=== PATIENT | female | born 1930 | race Caucasian/White ===

== ENCOUNTER 2018-06-28 17:40 | Inpatient (IN) | payer MEDICARE, OTHER ==
[~2018-06-28] VITALS: Ht 152.4 cm; Wt 38.2 kg
[2018-06-28] MEDS ORDERED: THYR60TA PO (17:58)
[2018-06-28] MEDS ORDERED: SODIUM CHLORIDE 0.9% 1,000ML IVBOLUS ONE (18:30)
[2018-06-28] MEDS ORDERED: SODIUM CHLORIDE FLUSH 10ML SYR IVF ONE (18:30)
[2018-06-28 18:42] LABS: BASOPHILS % (AUTO) 0 % (0-1); EOSINOPHILS # (AUTO) 0.02 x10^3/uL (0-0.4); EOSINOPHILS % (AUTO) 0 % (1-7); LYMPHOCYTES # (AUTO) 1.99 x10^3/uL (1-3.4); LYMPHOCYTES % (AUTO) 28 % (22-44); MD NO; MEAN CORPUSCULAR HEMOGLOBIN 34.2 pg (27.0-34.8); MEAN CORPUSCULAR HGB CONC 33.8 g/dL (32.4-35.8); MEAN CORPUSCULAR VOLUME 101.1 fL (80-100); MEAN PLATELET VOLUME 9.3 fL (7.4-10.4); MONOCYTES # (AUTO) 0.57 x10^3/uL (0.2-0.8); MONOCYTES % (AUTO) 8 % (2-9); NEUTROPHILS # (AUTO) 4.51 x10^3/uL (1.8-6.8); NEUTROPHILS % (AUTO) 64 % (42-75); PLATELET COUNT 197 x10^3/uL (130-400); RED BLOOD COUNT 3.81 x10^6/uL (3.82-5.3); RED CELL DISTRIBUTION WIDTH 13.4 % (9.6-15.2)
[2018-06-28 18:54] LABS: ALANINE AMINOTRANSFERASE 26 U/L (12-78); ALBUMIN 3.6 g/dL (3.4-5.0); ANION GAP 12 mmol/L (5-15); CHLORIDE 104 mmol/L (98-107); CREATININE 1.47 mg/dL (0.55-1.02)
[2018-06-28 18:56] LABS: ALKALINE PHOSPHATASE 96 U/L (45-117); BILIRUBIN,TOTAL 0.6 mg/dL (0.2-1.0); TOTAL PROTEIN 8.6 g/dL (6.4-8.2)
[2018-06-28 19:07] LABS: MICROSCOPIC INDICATED
[2018-06-28 19:12] LABS: CULTURE INDICATED? NO
[2018-06-28] MEDS ORDERED: CIPROFLOXACIN/PMX 400MG/200ML 200 ML IV ONE (21:00)
[2018-06-28] MEDS ORDERED: METRONIDAZOLE PMX 500MG/100ML 100 ML IV ONE (21:00)
[2018-06-28] MEDS ORDERED: CIPROFLOXACIN/PMX 400MG/200ML 200 ML ONE (21:02)
[2018-06-28] MEDS ORDERED: SODIUM CHLORIDE 0.9% 1,000 ML IV SCH (21:26)
[2018-06-28] MEDS ORDERED: ONDANSETRON 2MG/ML, 2ML IVPush PRN (21:30)
[2018-06-28] MEDS ORDERED: ACETAMINOPHEN 325 MG TABLET PO PRN (21:30)
[2018-06-28] MEDS ORDERED: HYDROcodone/APAP 5/325 TABLET PO PRN (21:30)
[2018-06-28] MEDS ORDERED: POLYETHYLENE GLYCOL 17 GM PACKET PO PRN (21:30)
[2018-06-28] MEDS: ENOXAPARIN 30 MG/0.3 ML SQ SCH (21:30)
[2018-06-28] MEDS ORDERED: DOCUSATE 100 MG CAPSULE PO PRN (21:30)
[2018-06-28 22:18] VITALS: BP 130/53
[2018-06-28] MEDS: METRONIDAZOLE PMX 500MG/100ML 100 ML IV SCH (22:30)
[2018-06-28] MEDS: LACTULOSE 10 GM/15 ML UDC PO ONE (23:23)
[2018-06-29 01:23] VITALS: BP 103/57
[2018-06-29 05:35] LABS: ANION GAP 11 mmol/L (5-15); CALCIUM 7.5 mg/dL (8.5-10.1); CHLORIDE 111 mmol/L (98-107)
[2018-06-29 05:36] LABS: CREATININE 1.06 mg/dL (0.55-1.02)
[2018-06-29 08:10] VITALS: BP 106/60
[2018-06-29] MEDS: SENNA/DOCUSATE TABLET PO SCH (09:00)
[2018-06-29] MEDS ORDERED: LACTULOSE 10 GM/15 ML UDC ONE (09:25)
[2018-06-29] MEDS: THYROID 30 MG TABLET PO SCH (09:32)
[2018-06-29] MEDS: METRONIDAZOLE PMX 500MG/100ML 100 ML IV SCH ×2 (09:33→19:29)
[2018-06-29] MEDS: LACTULOSE 10 GM/15 ML UDC PO ONE (09:35)
[2018-06-29] MEDS ORDERED: PINK LADY ENEMA 490 ML BOTTLE PR ONE (11:00)
[2018-06-29 14:35] VITALS: BP 123/70
[2018-06-29 19:18] VITALS: BP 133/63
[2018-06-29] MEDS ORDERED: CIPROFLOXACIN/PMX 400MG/200ML 200 ML IV SCH (21:00)
[2018-06-29] MEDS: ENOXAPARIN 30 MG/0.3 ML SQ SCH (21:49)
[2018-06-30 02:17] VITALS: BP 112/61
[2018-06-30] MEDS: METRONIDAZOLE PMX 500MG/100ML 100 ML IV SCH ×2 (03:32→11:29)
[2018-06-30 06:02] LABS: BASOPHILS # (AUTO) 0.01 x10^3/uL (0-0.1); BASOPHILS % (AUTO) 0 % (0-1); EOSINOPHILS # (AUTO) 0.02 x10^3/uL (0-0.4); EOSINOPHILS % (AUTO) 0 % (1-7); LYMPHOCYTES % (AUTO) 37 % (22-44); MD NO; MEAN CORPUSCULAR HEMOGLOBIN 34.2 pg (27.0-34.8); MEAN CORPUSCULAR HGB CONC 34.2 g/dL (32.4-35.8); MEAN PLATELET VOLUME 9.3 fL (7.4-10.4); MONOCYTES # (AUTO) 0.43 x10^3/uL (0.2-0.8); MONOCYTES % (AUTO) 9 % (2-9); NEUTROPHILS # (AUTO) 2.71 x10^3/uL (1.8-6.8); NEUTROPHILS % (AUTO) 54 % (42-75); PLATELET COUNT 127 x10^3/uL (130-400); RED BLOOD COUNT 3.09 x10^6/uL (3.82-5.3); RED CELL DISTRIBUTION WIDTH 13.3 % (9.6-15.2)
[2018-06-30 06:03] LABS: ANION GAP 10 mmol/L (5-15); CALCIUM 7.7 mg/dL (8.5-10.1); CHLORIDE 112 mmol/L (98-107); CREATININE 0.98 mg/dL (0.55-1.02)
[2018-06-30] MEDS: SENNA/DOCUSATE TABLET PO SCH (07:43)
[2018-06-30 08:17] VITALS: BP 125/66
[2018-06-30] MEDS: THYROID 30 MG TABLET PO SCH (08:35)
[2018-06-30] MEDS ORDERED: CIPR250T27 PO (12:10)
[2018-06-30] MEDS ORDERED: POLY17PO5 PO (12:10)
[2018-06-30] MEDS ORDERED: METR500T PO (12:10)
[2018-06-30 12:40] VITALS: BP 114/45
[2018-06-30 14:55] VITALS: BP 121/52
== END 2018-06-30 15:53 | disposition home health service (06) | DRG 391 ==
LOC: ED 20:58 → SUATTDRO 21:01 → EDIP 21:13 → 3NE 22:15
PROVIDERS: ADMIT Family Medicine; ATTEND Family Medicine
DX: K52.9 Noninfective gastroenteritis and colitis, unspecified (principal); N17.0 Acute kidney failure with tubular necrosis; K56.49 Other impaction of intestine; Z68.1 Body mass index [BMI] 19.9 or less, adult; K59.00 Constipation, unspecified; E03.9 Hypothyroidism, unspecified; E86.0 Dehydration; Z66 Do not resuscitate; R63.4 Abnormal weight loss; Z88.0 Allergy status to penicillin; K56.41 Fecal impaction
CPT/HCPCS: 36415; 74176; 80048; 80053; 81001; 82962; 83605; 83690; 85025; 96361; 96365; J0744; J7030

== ENCOUNTER 2018-07-17 17:56 | Emergency (ER) | payer MEDICARE ==
[~2018-07-17] VITALS: Ht 152.4 cm; Wt 40.0 kg
[~2018-07-17 17:56] MED LIST: CIPR250T27 PO; FLUC200T PO; METR500T PO; POLY17PO5 PO; THYR30TA PO; THYR60TA PO
[2018-07-17] MEDS ORDERED: ACETAMINOPHEN 325 MG TABLET ONE (18:54)
[2018-07-17] MEDS ORDERED: ACETAMINOPHEN 325 MG TABLET PO ONE (19:00)
[2018-07-17 19:11] LABS: ALBUMIN 2.4 g/dL (3.4-5.0); ANION GAP 5 mmol/L (5-15); CALCIUM 7.7 mg/dL (8.5-10.1); CHLORIDE 117 mmol/L (98-107); CREATININE 1.09 mg/dL (0.55-1.02)
[2018-07-17 19:12] LABS: BASOPHILS # (AUTO) 0.04 x10^3/uL (0-0.1); BASOPHILS % (AUTO) 1 % (0-1); EOSINOPHILS % (AUTO) 0 % (1-7); LYMPHOCYTES # (AUTO) 0.96 x10^3/uL (1-3.4); LYMPHOCYTES % (AUTO) 11 % (22-44); MD NO; MEAN CORPUSCULAR HEMOGLOBIN 34.2 pg (27.0-34.8); MEAN CORPUSCULAR VOLUME 100.5 fL (80-100); MEAN PLATELET VOLUME 9.7 fL (7.4-10.4); MONOCYTES % (AUTO) 6 % (2-9); NEUTROPHILS # (AUTO) 7.37 x10^3/uL (1.8-6.8); NEUTROPHILS % (AUTO) 83 % (42-75); PLATELET COUNT 161 x10^3/uL (130-400); RED BLOOD COUNT 3.68 x10^6/uL (3.82-5.3); RED CELL DISTRIBUTION WIDTH 14.3 % (9.6-15.2)
[2018-07-17 19:13] LABS: INTERNATIONAL NORMALIZED RATIO 1.26 (0.93-1.1)
[2018-07-17 20:17] VITALS: BP 142/71
== END 2018-07-17 20:26 | disposition home or self-care (01) ==
LOC: ED 18:08
DX: S06.0X0A Concussion without loss of consciousness, initial encounter (principal); E03.9 Hypothyroidism, unspecified; W19.XXXA Unspecified fall, initial encounter; Y93.89 Activity, other specified; Y99.8 Other external cause status; Y92.009 Unspecified place in unspecified non-institutional (private) residence as the place of occurrence of the external cause
CPT/HCPCS: 36415; 70450; 71045; 72125; 80048; 82040; 85025; 85610; 93005; 99285